=== PATIENT | male | born 1970 | race Two or more races ===

== ENCOUNTER 2020-03-04 14:28 | Outpatient (CLI) | payer OTHER ==
[~2020-03-04] VITALS: Ht 177.8 cm; Wt 86.2 kg
== END 2020-03-04 15:30 | disposition home or self-care (01) ==
LOC: OFIC 805 14:28
PROVIDERS: ATTEND Otolaryngology
DX: R07.0 Pain in throat (principal); M54.2 Cervicalgia; M62.838 Other muscle spasm